=== PATIENT | male | born 1980 | race Caucasian/White ===

== ENCOUNTER 2019-04-25 09:20 | Emergency (ER) | payer MEDICAID ==
[~2019-04-25] VITALS: Ht 180.3 cm; Wt 120.8 kg
[2019-04-25] MEDS ORDERED: LIDOCAINE HCL 1% 20ML VIAL (Pyxis) INJ INFIL ONE (10:00)
[2019-04-25 10:53] VITALS: BP 112/86
== END 2019-04-25 10:54 | disposition home or self-care (01) ==
LOC: ER 09:20
DX: S61.011A Laceration without foreign body of right thumb without damage to nail, initial encounter (principal); Z88.0 Allergy status to penicillin; Z88.6 Allergy status to analgesic agent; W45.8XXA Other foreign body or object entering through skin, initial encounter; Y93.89 Activity, other specified; Y92.015 Private garage of single-family (private) house as the place of occurrence of the external cause
CPT/HCPCS: 12001; 99283; J3490